=== PATIENT | male | born 1950 | race Caucasian/White ===

== ENCOUNTER 2017-10-02 12:30 | Outpatient (RCR) | payer MEDICARE, OTHER ==
[~2017-10-02 12:30] MED LIST: ATACAND8 MG PO; AVINZA30 M1 PO; DIPYRIDAMOLE50 MG PO; KLONOPIN 0.5MG0.5 MG PO; METHOCARBAMOL500 MG PO; METOPROLOL SUCC50 M2 PO; NORCO 325 MG-51 TAB PO; OMEPRAZOLE D/R20 MG PO; PLAVIX 75MG TAB75 MG PO; PLENDIL10 MG PO; VYTORIN 10 MG-81 TAB PO
== END 2017-10-07 | disposition home or self-care (01) ==
LOC: WSST
DX: R49.0 Dysphonia (principal)
CPT/HCPCS: G9171-GN; G9172-GN